=== PATIENT | female | born 1990 | race Hispanic/Latino ===

== ENCOUNTER 2019-02-14 16:43 | Emergency (ER) | payer MEDICAID, OTHER ==
[2019-02-14] MEDS ORDERED: DICYCLOMINE HCL 20 MG TAB ONE (16:59)
[2019-02-14] MEDS ORDERED: ONDANSETRON ODT 4 MG TAB ONE (16:59)
== END 2019-02-14 17:20 | disposition home or self-care (01) ==
LOC: EDH 16:43
DX: R11.2 Nausea with vomiting, unspecified (principal); R19.7 Diarrhea, unspecified